=== PATIENT | male | born 1975 | race African-American/Black ===

== ENCOUNTER 2017-07-02 02:54 | Emergency (ER) | payer BC ==
[2017-07-02 03:31] LABS: ADD MAN DIFF? NO
[2017-07-02 03:34] LABS: BASO % 1 % (0-3); EOS # 0.1 x10^3/uL (0.0-0.7); EOS % 3 % (0-3); HEMOGLOBIN 13.5 g/dL (13.0-17.5); LYMPH % 39 % (24-48); MEAN CORPUSCULAR HEMOGLOBIN 29 pg (25-35); MEAN CORPUSCULAR HGB CONC 35 g/dL (31-37); MEAN CORPUSCULAR VOLUME 85 fL (79-100); MONO # 0.6 x10^3/uL (0.0-1.1); MONO % 12 % (0-9); NEUT # 2.4 x10^3uL (1.8-7.7); NEUT % 46 % (31-73); PLATELET COUNT 235 x10^3/uL (140-400); RED BLOOD COUNT 4.58 x10^6/uL (4.30-5.70); RED CELL DISTRIBUTION WIDTH 13.9 % (11.5-14.5); WHITE BLOOD COUNT 5.2 x10^3/uL (4.0-11.0)
[2017-07-02] MEDS: KETOROLAC 30 MG/ML INJ. IV (03:35)
[2017-07-02] MEDS: IV NORMAL SALINE 1000ML BAG 1,000 ML IV (03:36)
[2017-07-02] MEDS: ONDANSETRON PF 4 MG/2 ML VIAL. IV (03:36)
[2017-07-02 03:45] LABS: ANION GAP 7 (6-14); BLOOD UREA NITROGEN 19 mg/dL (8-26); BUN/CREATININE RATIO 16 (6-20); CALCIUM 8.6 mg/dL (8.5-10.1); CARBON DIOXIDE 27 mmol/L (21-32); CHLORIDE 106 mmol/L (98-107); CREATININE 1.2 mg/dL (0.7-1.3); GFR 80.3; GLUCOSE 84 mg/dL (70-99); POTASSIUM 3.8 mmol/L (3.5-5.1); SODIUM 140 mmol/L (136-145)
[2017-07-02 03:50] LABS: ALBUMIN 3.7 g/dL (3.4-5.0); ALK PHOS 57 U/L (46-116); ALT (SGPT) 36 U/L (16-63); AST (SGOT) 21 U/L (15-37); TOTAL BILIRUBIN 0.7 mg/dL (0.2-1.0); TOTAL PROTEIN 7.4 g/dL (6.4-8.2)
== END 2017-07-02 04:35 | disposition home or self-care (01) ==
LOC: ER 02:54
DX: R10.9 Unspecified abdominal pain (principal); J45.909 Unspecified asthma, uncomplicated; Z88.0 Allergy status to penicillin
CPT/HCPCS: 36415; 74176; 80053; 85025; 96374; 96375; 99285-25; J1885; J2405; J7030

== ENCOUNTER 2018-12-20 18:05 | Emergency (ER) | payer BC ==
[~2018-12-20] VITALS: Ht 185.4 cm; Wt 104.3 kg
[~2018-12-20 18:05] MED LIST: NAPR-514 PO; OXYC1TAB15 PO
[2018-12-20 18:21] VITALS: BP 154/94
[2018-12-20] MEDS ORDERED: METH4TAB2 PO (18:27)
[2018-12-20] MEDS ORDERED: ALBU2.5V8 INH (18:27)
--- NOTE | 2018-12-20 18:27 | PHYS DOC ---
Past Medical History Past Medical History: Asthma Past Surgical History: No Surgical History Alcohol Use: None Drug Use: None Adult General Chief Complaint Chief Complaint: COUGH HPI HPI Patient is a 43 year old male who presents with 5 days of cough and shortness of air. Patient states she's been taking his nebulized breathing treatment which did help but he is out of his inhaler. Patient states he's been taking his allergy medicine of which has taken care of his stuffy nose. Patient denies coughing up any mucus. Patient denies any pain. Review of Systems Review of Systems Respiratory: cough or shortness of breath [] Cardiovascular:Generalized tightness All other systems were reviewed and found to be within normal limits, except as documented in this note. Current Medications Current Medications Current Medications Medications (Trade) Dose Ordered Sig/Ellis Start Time Stop Time Status Last Admin Dose Admin Albuterol Sulfate (Ventolin Neb Soln) 2.5 mg 1X ONCE 12/20/18 18:30 12/20/18 18:31 DC 12/20/18 18:34 2.5 MG Prednisone (Prednisone) 50 mg 1X ONCE 12/20/18 18:30 12/20/18 18:31 DC 12/20/18 19:04 50 MG Allergies Allergies Allergies Coded Allergies Type Severity Reaction Last Updated Verified Penicillins Allergy Intermediate Unknown 08/07/14 Yes Physical Exam Physical Exam Constitutional: Well developed, well nourished, no acute distress, non-toxic appearance. [] HENT: Normocephalic, atraumatic, bilateral external ears normal, oropharynx moist, no oral exudates, nose normal. [] Eyes: PERRLA, EOMI, conjunctiva normal, no discharge. [] Neck: Normal range of motion, no tenderness, supple, no stridor. [] Cardiovascular:Heart rate regular rhythm, no murmur [] Lungs & Thorax: Bilateral upper breath sounds clear and lower diminished to auscultation [] Abdomen: Bowel sounds normal, soft, no tenderness, no masses, no pulsatile masses. [] Skin: Warm, dry, no erythema, no rash. [] Neurologic: Alert and oriented X 3, normal motor function, normal sensory function, no focal deficits noted. [] Psychologic: Affect normal, judgement normal, mood normal. [] Current Patient Data Vital Signs Vital Signs Date Time Temp Pulse Resp B/P (MAP) Pulse Ox O2 Delivery O2 Flow Rate FiO2 12/20/18 18:35 97 Room Air 12/20/18 18:21 97.8 71 20 154/94 (114) 97.8 EKG EKG [] Radiology/Procedures Radiology/Procedures [] Course & Med Decision Making Course & Med Decision Making Alert and oriented. Ambulatory to stay gait. Skin pink warm and dry. Speaks in full clear sentences. Patient states his chest is feeling tight. Patient denies being a smoker. Lungs are clear to auscultation a bolus but diminished in lower lobes and they do sound tight but patient is moving air. Vital signs are within normal limits. Throat is pink without exudates or swelling. Bilateral tympanic is pearly white. Afebrile. Patient denies fever, nausea, vomiting, abdominal pain, dizziness, headache, visual changes, syncope, diarrhea, chest pain, numbness or tingling. Dr Bronson Read the Xray and read it as the possible start of some pneumonia. Dragon Disclaimer Dragon Disclaimer This electronic medical record was generated, in whole or in part, using a voice recognition dictation system. Departure Departure Impression: Primary Impression: Cough Additional Impressions: Shortness of breath Asthma Disposition: HOME, SELF-CARE Condition: STABLE Referrals: JAYDE MARS MD (PCP) Patient Instructions: Asthma, Adult, Cough, Adult Additional Instructions: Follow-up with her primary care provider. Take medications as prescribed. Scripts Azithromycin (AZITHROMYCIN TABLET) 250 Mg Tablet 1 PKG PO UD for 5 Days, #6 TAB 0 Refills 2 the first day followed by 1 for days 2-5 Prov: GEOFFREY PAGE APRN 12/20/18 Albuterol Sulfate (Proair Hfa) 8.5 Gm Hfa.aer.ad 1 PUFF INH PRN Q6HRS PRN for SHORTNESS OF BREATH, #1 INHALER Prov: GEOFFREY PAGE APRN 12/20/18 Methylprednisolone (MEDROL) 4 Mg Tab.ds.pk 1 PKG PO UD, #1 PKG Prov: GEOFFREY PAGE APRN 12/20/18 Problem Qualifiers Additional Impressions: Asthma Asthma severity: mild Asthma persistence: intermittent Asthma complication type: uncomplicated Qualified Codes: J45.20 - Mild intermittent asthma, uncomplicated GEOFFREY PAGE [employer]EL[employer] Dec 20, 2018 18:27
[2018-12-20] MEDS ORDERED: predniSONE 10 MG TABLET PO ONE (18:30)
[2018-12-20] MEDS ORDERED: ALBUTEROL SULFATE 2.5 MG/3 ML NEBU. NEB ONE (18:30)
[2018-12-20] MEDS ORDERED: AZIT250T6 PO (19:22)
--- NOTE | 2018-12-20 19:22 | RAD ---
Exam: Chest 2 views INDICATION: Cough TECHNIQUE: Frontal and lateral views of the chest Comparisons: None FINDINGS: The cardiomediastinal silhouette and pulmonary vessels are within normal limits. The lung and pleural spaces are clear. IMPRESSION: No acute cardiopulmonary process. Electronically signed by: Ophelia Spain MD (12/20/2018 7:19 PM) [facility]
== END 2018-12-20 19:27 | disposition home or self-care (01) ==
LOC: ER 18:05
DX: R05 Cough (principal); R06.02 Shortness of breath; J45.909 Unspecified asthma, uncomplicated; Z88.0 Allergy status to penicillin
CPT/HCPCS: 71046; 94640; 99284; J7512; J7613